=== PATIENT | female | born 2000 | race Caucasian/White ===

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

== ENCOUNTER 2018-08-18 09:34 | Outpatient (CLI) | payer OTHER ==
--- NOTE | 2018-08-18 11:05 | ULT ---
LIMITED RIGHT BREAST ULTRASOUND: DATE: 08/18/2018. PROVIDED CLINICAL HISTORY: Right breast palpable abnormality. FINDINGS: Limited sonographic interrogation was performed of the right breast in the region of palpable concern at the 9 o'clock position. There is an oval circumscribed hypoechoic mass measuring about 1.5 cm wi thout posterior shadowing and demonstrating smooth margins. No additional findings are evident. IMPRESSION: A 1.5 cm hypoechoic breast mass corresponding to the palpable finding at 9 o'clock, in a patient of t his age statistically reflecting a fibroadenoma. Six-month followup right breast ultrasound is recom mended. Findings and recommendations discussed with the patient, who voiced understanding. CODE CR POS: [facility]
== END 2018-08-18 09:35 | disposition home or self-care (01) ==
LOC: BICULT 09:34
PROVIDERS: ATTEND Advanced Practice Midwife
DX: N63.13 Unspecified lump in the right breast, lower outer quadrant (principal)

== ENCOUNTER 2019-03-28 14:00 | Emergency (ER) | payer OTHER ==
[2019-03-28] MEDS ORDERED: Ondansetron PF 4 MG/2 ML Vial ONE ×3 (14:44→21:10)
[2019-03-28 14:54] LABS: Hemoglobin 15.4 g/dL (12.0-16.0); Mean Corpuscular HGB CONC 35.3 g/dL (32.0-36.0); Mean Corpuscular Hemoglobin 33.4 pg (27.0-31.0); Mean Corpuscular Volume 94.6 fL (78.0-98.0); Mean Platelet Volume 7.8 fL (7.4-10.4); Platelet Count 413 thou/uL (130-400); RBC Distribution Width 11.7 % (11.5-14.5); Red Blood Cell (RBC) Count 4.61 mill/uL (4.20-5.40); White Blood Cell (WBC) Count 16.6 thou/uL (4.8-10.8)
[2019-03-28 15:13] LABS: Band 6 % (5-11); Elliptocytes SLIGHT = 2-5 cells (100X) (0-1/hpf); Eosinophils 1 % (0-10); Lymphocytes 2 % (21-51); MDiff Complete? YES; Monocytes 6 % (0-10); Neutrophil 84 % (42-75); Platelet Morphology Comment Appears Increased; Reactive Lymphocytes 1 % (0-10)
[2019-03-28 15:14] LABS: ALT (SGPT) 11 U/L (8-55); AST (SGOT) 13 U/L (5-34); Albumin 4.6 g/dL (3.5-5.0); Alkaline Phosphatase 58 U/L (40-110); Anion Gap 16 mmol/L (10-20); BUN (Urea Nitrogen) 24 mg/dL (7.0-18.7); Bilirubin, Total 1.1 mg/dL (0.2-1.2); Calc. Creatinine Clearance 0 mL/min (70-130); Calcium 9.6 mg/dL (7.8-10.44); Carbon Dioxide 20 mmol/L (22-29); Chloride 104 mmol/L (98-107); Estimated GFR-MDRD 89; Globulin 3.4 g/dL (2.4-3.5); Glucose 242 mg/dL (70-105); Lipase 18 U/L (8-78); Magnesium 1.3 mg/dL (1.6-2.6); Potassium 3.9 mmol/L (3.5-5.1); Sodium 136 mmol/L (136-145)
[2019-03-28 15:32] LABS: Thyroid Stimulating Hormone 0.1529 uIU/mL (0.35-4.94)
[2019-03-28 15:45] LABS: BHCG - Serum Negative (NEGATIVE); Pregs Control Background? CLEAR/WHITE (CLR/WHITE); Pregs Control Bar Appear? YES (CONTROL BAR)
[2019-03-28] MEDS ORDERED: Ketorolac Tromethamine 30 MG/ML VIAL ONE (15:46)
[2019-03-28 17:25] LABS: Bilirubin Negative (Negative); Blood, Urine Negative (Negative); Clarity Clear (Clear); Glucose, Urine (Dipstick) 100 mg/dL (Negative); Leukocyte Negative Leu/uL (Negative); Nitrite Negative (Negative); Protein, Urine (Dipstick) 10 mg/dL (Neg-Trace); Urobilinogen Normal mg/dL (Less than 2)
--- NOTE | 2019-03-28 18:06 | CT ---
CT ABDOMEN AND PELVIS WITH IV CONTRAST: 03/28/19 HISTORY: Right lower quadrant abdominal pain with nausea, vomiting and diarrhea. COMPARISON: 01/30/17. FINDINGS: The lung bases are clear. Post cholecystectomy changes are again noted. The liver, spleen, pancreas, bilateral adrenal glands, kidneys, and abdominal aorta demonstrate a nor mal CT appearance. The urinary bladder is completely decompressed and not well evaluated on this exam. There is diminished attenuation of the endometrial canal also seen on the prior study and may be rela lashon to stage of the patient's menstrual cycle. Opacified loops of small bowel are normal in caliber. Mild prominence of a few loops of small bowel in the left mid abdomen probably related to peristalsis. The appendix is visualized and normal in caliber. There is suggestion of very mild thickening involving the wise of the most proximal ascending colon. No pericolonic inflammatory changes are seen. Colon in this region is fluid filled. No lymphadenopathy or fluid collection is seen in the abdomen or pelvis. IMPRESSION: 1. Suggestion of mild thickening involving the ascending colon. Colitis is a possibility which c ould be infectious or inflammatory in etiology. 2. No CT evidence of appendicitis. 3. Post cholecystectomy changes. POS: [facility]
[2019-03-28] MEDS ORDERED: Magnesium 2 GM/50 ML BAG (IN WATER) ONE (18:29)
[2019-03-28 19:24] LABS: Base Excess-Venous -3.4 mmol/L (-2.0 to 3.0); Bicarbonate (HCO3v) 21.2 mmol/L (22.0-28.0); CO2 Tension (PvCO2) 35.6 mmHg (40.0-50.0); Calcium, Ionized 1.08 mmol/L (See Comments:); Chloride 106 mmol/L (98-107); Hemoglobin - Calc 11.6 g/dL (12.0-16.0); Sodium 139 mmol/L (138-145); T. Carbon Dioxide 22.3 mmol/L (22.0-28.0); vO2 Saturation-calc 77.5 % (60.0-85.0)
== END 2019-03-28 21:20 | disposition home or self-care (01) ==
LOC: ERS 14:00
DX: K52.9 Noninfective gastroenteritis and colitis, unspecified (principal); R11.2 Nausea with vomiting, unspecified; E10.9 Type 1 diabetes mellitus without complications; E03.9 Hypothyroidism, unspecified; F41.9 Anxiety disorder, unspecified; F32.9 Major depressive disorder, single episode, unspecified; Z79.899 Other long term (current) drug therapy
CPT/HCPCS: 36415; 36416; 74177; 80053; 81003; 82010; 82330; 82803; 83605; 83690; 83735; 84443; 84703; 85025; 94760; 96361; 96365; 96372; 96375; 96376; J0500; J1885; J2405; J3475

== ENCOUNTER 2020-12-24 12:52 | Outpatient (CLI) | payer BC | END 2020-12-24 12:53 | disposition home or self-care (01) | LOC: BICRAD 12:52 | PROVIDERS: ATTEND Family Medicine | DX: M54.5 Low back pain (principal); M41.9 Scoliosis, unspecified | CPT/HCPCS: 72100 ==

== ENCOUNTER 2021-11-16 10:04 | Emergency (ER) | payer BC ==
[2021-11-16] MEDS ORDERED: Ondansetron PF 4 MG/2 ML Vial ONE (10:34)
[2021-11-16 10:43] LABS: Actual Bicarbonate (HCO3v) 19 mEq/L (22-28); Base Excess -4.2 mEq/L (-2.0 to +3.0); Calcium, Ionized (venous) 1.11 mmol/L (1.16-1.32); Chloride (VBG) 106 mmol/L (98-106); Hemoglobin (Hb) 15.2 g/dL (11.7-15.5); Potassium (VBG) 3.93 mmol/L (3.70-5.30); Sodium 137.1 mmol/L (133-146); pH (venous) 7.42 (7.32-7.43)
[2021-11-16 10:45] LABS: #Eosinphils 0.2 thou/uL (0.0-0.7); #Lymphocytes 0.7 thou/uL (1.20-3.40); #Monocytes 0.6 thou/uL (0.11-0.59); %Basophils 0.3 % (0.0-1.0); %Eosinophils 1.4 % (0.0-10.0); %Lymphocytes 4.9 % (21.0-51.0); %Monocytes 4.5 % (0.0-10.0); Hemoglobin 14.6 g/dL (12.0-16.0); Mean Corpuscular HGB CONC 33.5 g/dL (32.0-36.0); Mean Corpuscular Volume 95.6 fL (78.0-98.0); Mean Platelet Volume 8.4 fL (7.4-10.4); Platelet Count 398 thou/uL (130-400); RBC Distribution Width 14.1 % (11.5-14.5); Red Blood Cell (RBC) Count 4.56 mill/uL (4.20-5.40); White Blood Cell (WBC) Count 13.5 thou/uL (4.8-10.8)
[2021-11-16 11:04] LABS: ALT (SGPT) 13 U/L (8-55); AST (SGOT) 14 U/L (5-34); Alkaline Phosphatase 116 U/L (40-110); Anion Gap 18 mmol/L (10-20); BUN (Urea Nitrogen) 17 mg/dL (7.0-18.7); Bilirubin, Total 0.6 mg/dL (0.2-1.2); Calc. Creatinine Clearance 0 mL/min (70-130); Calcium 9.2 mg/dL (7.8-10.44); Carbon Dioxide 16 mmol/L (22-29); Chloride 105 mmol/L (98-107); Estimated GFR 96; Globulin 3.1 g/dL (2.4-3.5); Glucose 348 mg/dL (70-105); Lipase 17 U/L (8-78); Magnesium 1.4 mg/dL (1.6-2.6); Phosphorus 3.1 mg/dL (2.3-4.7); Potassium 4.1 mmol/L (3.5-5.1); Protein, Total 7.1 g/dL (6.0-8.3); Sodium 135 mmol/L (136-145)
[2021-11-16] MEDS ORDERED: Magnesium 2 GM/50 ML BAG (IN WATER) ONE (11:37)
[2021-11-16] MEDS ORDERED: Insulin Regular 300 UNITS/3 ML VIAL ONE (11:55)
[2021-11-16] MEDS ORDERED: Potassium Chloride 20 MEQ TAB ONE (11:56)
== END 2021-11-16 13:34 | disposition home or self-care (01) ==
LOC: ERS 10:04
DX: E10.65 Type 1 diabetes mellitus with hyperglycemia (principal); K52.9 Noninfective gastroenteritis and colitis, unspecified; E03.9 Hypothyroidism, unspecified
CPT/HCPCS: 36415; 36416; 80053; 82010; 82805; 83690; 83735; 84100; 84484; 85025; 94760; 96361; 96365; 96366; 96375; J1815; J2405; J3475

== ENCOUNTER 2024-05-16 05:52 | Emergency (ER) | payer BC ==
[2024-05-16] MEDS ORDERED: fentaNYL 50 mcg/mL 1 mL Vial ONE (06:11)
[2024-05-16] MEDS ORDERED: Ketorolac Tromethamine 30 MG (1 mL) VIAL ONE (06:12)
[2024-05-16] MEDS ORDERED: Ondansetron PF 4 MG/2 ML Vial ONE (06:12)
[2024-05-16 06:58] LABS: #Basophils 0.05 10x3/uL (0.0-0.2); %Basophils 0.6 % (0.0-1.0); %Eosinophils 4.6 % (0.0-10.0); %Lymphocytes 24.9 % (21.0-51.0); %Monocytes 6.2 % (0.0-10.0); %Neutrophils 63.6 % (42.0-75.0); Hematocrit 37.8 % (36.0-47.0); Hemoglobin 12.6 g/dL (12.0-16.0); Mean Corpuscular HGB CONC 33.3 g/dL (32.0-36.0); Mean Corpuscular Hemoglobin 29.7 pg (27.0-31.0); Mean Corpuscular Volume 89.2 fL (78.0-98.0); Mean Platelet Volume 9.9 fL (7.4-10.4); Platelet Count 428 10x3/uL (130-400); RBC Distribution Width 15.1 % (11.5-14.5); Red Blood Cell (RBC) Count 4.24 mill/uL (4.20-5.40)
[2024-05-16 07:19] LABS: BHCG - Serum Negative (NEGATIVE); Pregs Control Background? CLEAR/WHITE (CLR/WHITE); Pregs Control Bar Appear? YES (CONTROL BAR)
[2024-05-16 07:24] LABS: ALT (SGPT) 9 U/L (Less than 34); AST (SGOT) 16 U/L (11-34); Albumin 3.7 g/dL (3.1-4.5); Alkaline Phosphatase 73 U/L (40-110); Anion Gap 11 mmol/L (10-20); BUN (Urea Nitrogen) 16 mg/dL (7.0-18.7); Bilirubin, Total 0.3 mg/dL (0.3-1.2); Calc. Creatinine Clearance 0 mL/min (70-130); Calcium 9.1 mg/dL (7.8-10.44); Carbon Dioxide 23 mmol/L (22-29); Chloride 106 mmol/L (98-107); Estimated GFR 120; Globulin 3.5 g/dL (2.4-3.5); Glucose 246 mg/dL (70-105); Lipase 23 U/L (8-78); Protein, Total 7.2 g/dL (6.0-8.3); Sodium 136 mmol/L (136-145)
[2024-05-16] MEDS ORDERED: Morphine 4 MG/ML VIAL ONE (08:49)
[2024-05-16 09:31] LABS: Bacteria/HPF None Seen HPF (None Seen); Bilirubin Negative (Negative); Blood, Urine Negative (Negative); CAUTI Indications for Culture Pelvic or flank pain; Clarity Clear (Clear); Glucose, Urine (Dipstick) Greater than 1000 mg/dL (Negative); Ketone, Urine Negative (Negative); Leukocyte Negative Leu/uL (Negative); Nitrite Negative (Negative); Protein, Urine (Dipstick) Negative (Neg-Trace); RBC/HPF 0-3 HPF (0-3); Specific Gravity, Urine 1.018 (1.002-1.036); Squamous Epithelial 0-3 HPF (0-3); Urobilinogen Normal mg/dL (Less than 2); WBC/HPF 0-3 HPF (0-3); pH, Urine 5.5 (5.0-9.0)
[2024-05-16 09:44] LABS: Urine Culture Reflex No No
== END 2024-05-16 10:09 | disposition home or self-care (01) ==
LOC: ERS 05:52
DX: R10.31 Right lower quadrant pain (principal); R11.10 Vomiting, unspecified; E10.9 Type 1 diabetes mellitus without complications
CPT/HCPCS: 36416; 74176; 80053; 81001; 82010; 83690; 84703; 85025; 96374; 96375; J1885; J2270; J2405; J3010